=== PATIENT | female | born 1935 | race Two or more races ===

== ENCOUNTER 2023-03-09 08:02 | Outpatient (CLI) | payer OTHER ==
[~2023-03-09 08:02] MED LIST: B-TREX PO; CARDURA1 MG PO; COZAAR100 MG PO; ECOTRIN81 MG PO; NEURIN PO; NORVASC2.5 M1 PO; PERCOCET 5/3251 TAB PO
== END 2023-03-09 08:10 | disposition home or self-care (01) ==
LOC: RX STUDY 08:02
DX: R13.10 Dysphagia, unspecified (principal)